=== PATIENT | male | born 1970 | race Caucasian/White ===

== ENCOUNTER 2018-01-17 10:03 | Emergency (ER) | payer BC ==
--- NOTE | 2018-01-17 10:52 | CT ---
EXAMINATION: Non contrast CT head. Coronal and sagittal reformats. HISTORY: Pain FINDINGS: No evidence of intra or extra axial hemorrhage, mass, midline shift, hydrocephalus or edema. No hypoattenuation changes in the major vascular territories to suggest acute infarct. No abnormal intracranial calcifications are detected. No evidence of substantial vascular calcificat ions. Paranasal sinuses and mastoid air cells are well aerated without substantial findings. Orbits and gl obes are symmetric. Pituitary fossa appears unremarkable. Calvarium is intact. No evidence of skull fracture. IMPRESSION: No acute intracranial findings.
--- NOTE | 2018-01-17 11:25 | EDM.PDOC ---
ED HPI GENERAL MEDICAL PROBLEM - General Chief Complaint: General Stated Complaint: RIGHT SIDE OF FACE NUMB Time Seen by Provider: 01/17/18 10:30 Source of Information: Reports: Patient History Limitations: Reports: No Limitations - History of Present Illness INITIAL COMMENTS - FREE TEXT/NARRATIVE: HISTORY AND PHYSICAL: History of present illness: patient is a 47-year-old male who presents to the emergency room with complaints of right-sided facial numbness since Wednesday. He denies any weakness , slurring of speech, headache or difficulty with ADLs. states approximately 2 weeks ago he did have an upper respiratory illness which she said resolved over 2-4 days. Wednesday he noticed some numbness to the right side of his face withtearing of his right eye. States his father recently had Blum's palsy and was concerned and wanted to be evaluated. He denies any fever, chills, chest pain or shortness of breath. He denies any abdominal pain, nausea, vomiting/ diarrhea. Review of systems: As per history of present illness and below otherwise all systems reviewed and negative. Past medical history: As per history of present illness and as reviewed below otherwise noncontributory. Surgical history: As per history of present illness and as reviewed below otherwise noncontributory. Social history: No reported history of drug or alcohol abuse. Family history: As per history of present illness and as reviewed below otherwise noncontributory. Physical exam: General: well-developed and well-nourished 47-year-old male. Alert and oriented. Nontoxic appearing and in no acute distress. HEENT: Atraumatic, normocephalic, pupils reactive, negative for conjunctival pallor or scleral icterus, mucous membranes moist, throat clear, neck supple, nontender, trachea midline. Decrease in facial muscle movement on right. Speech is clear. Unable to squeeze right eye shut, compared to left. Lungs: Clear to auscultation, breath sounds equal bilaterally, chest nontender. Heart: S1S2, regular rate and rhythm. Abdomen: Soft, nondistended, nontender. Negative for masses or hepatosplenomegaly. Negative for costovertebral tenderness. Pelvis: Stable nontender. Genitourinary: Deferred. Rectal: Deferred. Extremities: Atraumatic, moves all extremities per self without difficulty or deficits, negative for cords or calf pain. Neurovascular unremarkable. Neuro: Awake, alert, oriented. Cranial nerves II through XII unremarkable. Cerebellum unremarkable. Motor and sensory unremarkable throughout. Exam nonfocal. nIH scale 0. no deficits noted. upon patient arrival triage did note he had high blood pressure. Patient states that "this is been cooking for a whileand a used to take blood pressure medications". Head CT was ordered in the triage office as there is a trauma going on/no beds available at this time. I did assess him on the triage office and did not notice any neurological deficits. Head CT is normal showing no acute findings. I did offer to do routine lab work with the patient, he declined (due to elevated blood pressure). He states he will follow-up with his primary care provider, Dr. Alonso next week for re- evaluation of [place] and HTN. Current blood pressure reading is 170/90. VSS. we discussed signs and symptoms that would prompt him to come back to the emergency room. He voices understanding and is agreeable to plan of care. He denies any further questions at this time. Diagnostics: CT Therapeutics: [] Impression: [place] Palsy Plan: 1. Oral Prednisone (steriod) taper. Please take as directed. 2. As we discussed, please use eyedrops during the daytime. You may tape eyelid shut during night time use to avoid eye trauma, with lubricating ointment. 3. Please follow up with primary care doctor within the next several days. Return to the ED as needed and as discussed. Definitive disposition and diagnosis as appropriate pending reevaluation and review of above. Duration: Day(s): Location: Reports: Face - Related Data Allergies Allergy/AdvReac Type Severity Reaction Status Date / Time No Known Allergies Allergy Verified 01/17/18 10:15 Home Meds: Home Meds . [No Known Home Meds] 01/17/18 [History] Past Medical History - Past Health History Medical/Surgical History: Denies Medical/Surgical History Social & Family History - Tobacco Use Smoking Status *Q: Never Smoker Second Hand Smoke Exposure: No - Caffeine Use Caffeine Use: Reports: None - Recreational Drug Use Recreational Drug Use: No ED ROS GENERAL - Review of Systems Review Of Systems: ROS reveals no pertinent complaints other than HPI. ED EXAM, GENERAL - Physical Exam Exam: See Below (see dictation) Course - Vital Signs Last Recorded V/S: Last Vital Signs Temp 98.2 F 01/17/18 10:20 Pulse 77 01/17/18 10:20 Resp 18 01/17/18 10:20 BP 208/117 H 01/17/18 10:20 Pulse Ox 98 01/17/18 10:20 Departure - Departure Time of Disposition: 11:25 Disposition: Home, Self-Care 01 Clinical Impression: Blum palsy - Discharge Information Instructions: Blum Palsy, Adult Referrals: Fer Alonso MD [Primary Care Provider] - Additional Instructions: My general discharge The following information is given to patients seen in the emergency department who are being discharged to home. This information is to outline your options for follow-up care. We provide all patients seen in our emergency department with a follow-up referral. The need for follow-up, as well as the timing and circumstances, are variable depending upon the specifics of your emergency department visit. If you don't have a primary care physician on staff, we will provide you with a referral. We always advise you to contact your personal physician following an emergency department visit to inform them of the circumstance of the visit and for follow-up with them and/or the need for any referrals to a consulting specialist. The emergency department will also refer you to a specialist when appropriate. This referral assures that you have the opportunity for follow-up care with a specialist. All of these measure are taken in an effort to provide you with optimal care, which includes your follow-up. Under all circumstances we always encourage you to contact your private physician who remains a resource for coordinating your care. When calling for follow-up care, please make the office aware that this follow-up is from your recent emergency room visit. If for any reason you are refused follow-up, please contact the [facility] Emergency Department at and asked to speak to the emergency department charge nurse. [facility] [address] [place], [place] [id number] 1. Oral Prednisone (steriod) taper. Please take as directed. 2. As we discussed, please use eyedrops during the daytime. You may tape eyelid shut during night time use to avoid eye trauma, with lubricating ointment. 3. Please follow up with primary care doctor within the next several days. Return to the ED as needed and as discussed.
[2018-01-17] MEDS ORDERED: cloNIDine 0.1 MG Tab PO ONE (11:43)
== END 2018-01-17 12:35 | disposition left against medical advice (07) ==
LOC: MW.ED 10:03
DX: G51.0 Bell's palsy (principal)
CPT/HCPCS: 70450; 99284; A9270